=== PATIENT | female | born 1975 | race Caucasian/White ===

== ENCOUNTER → 2020-05-21 09:09 | Outpatient (BNVA) | payer OTHER, SELFPAY | PROVIDERS: Visit Provider Surgery | DX: E66.01 Morbid (severe) obesity due to excess calories (principal); Z68.42 Body mass index [BMI] 45.0-49.9, adult | CPT/HCPCS: Q3014 ==

== ENCOUNTER → 2020-05-23 13:10 | Outpatient (BNVA) | payer OTHER, SELFPAY | PROVIDERS: PCP Nurse Practitioner Family; Visit Provider Surgery | DX: Z76.89 Persons encountering health services in other specified circumstances (principal) ==

== ENCOUNTER → 2020-06-15 14:00 | Outpatient (BNVA) | payer OTHER, BC, SELFPAY | PROVIDERS: PCP Nurse Practitioner Family; Referring Provider Nurse Practitioner Family; Visit Provider Physician Assistant | DX: Z76.89 Persons encountering health services in other specified circumstances (principal) ==

== ENCOUNTER → 2020-06-18 08:03 | Outpatient (BNVA) | payer OTHER, BC, SELFPAY | PROVIDERS: PCP Nurse Practitioner Family; Referring Provider Nurse Practitioner Family; Visit Provider Surgery | DX: Z76.89 Persons encountering health services in other specified circumstances (principal) ==

== ENCOUNTER 2020-06-19 10:17 | Outpatient (REF) | payer OTHER, BC, SELFPAY ==
[2020-06-19 11:50] LABS: MANUAL DIFF FLAG NO
[2020-06-19 11:53] LABS: Basophils Absolute Auto 0.1 X10*3/uL (0.0-0.2); Basophils Percent Auto 0.5 % (0-2); Eosinophils Absolute Auto 0.1 X10*3/uL (0.0-0.4); Eosinophils Percent Auto 0.8 % (0-4); Hemoglobin 11.6 g/dl (12.0-16.0); Imm Gran Abs Auto 0.14 X10*3/uL (0.00-0.03); Imm Gran Pct Auto 1.3 % (0.0-0.4); Lymphocytes Absolute Auto 2.6 X10*3/uL (1.2-4.9); Lymphocytes Percent Auto 24.3 % (20-40); Mean Corpuscular HGB Conc 33.1 g/dl (31.0-35.0); Mean Corpuscular Hemoglobin 29.1 pg (27.0-33.0); Mean Corpuscular Volume 87.7 fL (80-98); Mean Platelet Volume 8.9 fL (9.4-12.3); Monocytes Absolute Auto 0.4 X10*3/uL (0.1-1.2); Monocytes Percent Auto 4.1 % (2-11); Neutrophils Absolute Auto 7.5 X10*3/uL (2.0-8.3); Platelet Count 228 X10*3/uL (160-400); Red Blood Count 3.99 X10*6/uL (4.20-5.50); Red Cell Distribution Width 14.5 % (11.0-16.0); White Blood Count 10.8 X10*3/uL (4.8-10.8)
[2020-06-19 11:58] LABS: INTERNATIONAL NORM RATIO 0.9 (0.9-1.1); Prothrombin Time 11.2 SEC (10.8-13.0)
[2020-06-19 12:01] LABS: Partial Thromboplastin Time 35.4 SEC (24.1-38.0)
[2020-06-19 12:19] LABS: Estimated Average Glucose 85 mg/dL; Hemoglobin A1c % 4.6 %
[2020-06-19 12:33] LABS: Alanine Aminotransferase 27 U/L (0-31); Alkaline Phosphatase 118 U/L (39-117); Anion Gap 14 (12-20); Aspartate Amino Transferase 14 U/L (5-31); Bilirubin Total 0.6 mg/dL (0.0-1.0); Blood Urea Nitrogen 15 mg/dL (9-16); C Reactive Protein 1.94 mg/dL (< or = 0.50); Calcium 8.5 mg/dL (8.4-10.2); Carbon Dioxide 21 mmol/L (22-29); Chloride 109 mmol/L (96-108); Cholesterol 166 mg/dL; Estimated Glomerular Filt Rate > 60; Glucose Random 102 mg/dL (60-115); HDL Cholesterol 29 mg/dL; LDL Cholesterol Calculated 91 mg/dl; Potassium 4.4 mmol/l (3.3-5.1); Sodium 140 mmol/L (135-145); Total Protein 6.8 g/dL (6.5-8.0); Triglycerides 233 mg/dL
[2020-06-19 12:53] LABS: TSH reflex Free T4 1.35 mIU/mL (0.32-4.0)
[2020-06-21 10:52] LABS: Insulin Level Total 39.8 uIU/mL
== END 2020-06-19 10:18 | disposition home or self-care (01) ==
LOC: HO.LAB 10:17
PROVIDERS: PCP Nurse Practitioner Family; Visit Provider Surgery
DX: G43.909 Migraine, unspecified, not intractable, without status migrainosus (principal)
CPT/HCPCS: 36415; 80053; 80061; 83036; 83525; 84443; 85025; 85610; 85730; 86140; 86850

== ENCOUNTER 2020-06-26 06:11 | Inpatient (IN) | payer OTHER, BC, SELFPAY ==
[2020-06-20 13:11] VITALS: BMI 44.6
--- NOTE | 2020-06-25 11:57 | HO.ANESPROP2 ---
Documented by User: Yoselin Cunningham 06/25/20 12:01 HPI - Anesthesia Eval Consult details Narrative: 45yo F for Gastrectomy Sleeve PMFSH Past Medical History Medical History Anxiety Depression History of alcohol abuse Hx of drug abuse Migraines Morbid obesity Panic attacks Restless leg syndrome Stress incontinence Family History Family History Father No problems noted. Mother No problems noted. Brother No problems noted. Sister No problems noted. Surgical History Surgical History S/P discectomy S/P laparoscopic cholecystectomy Social History Social History Are you a primary care program resident to a significant other at home: No Do you presently have visiting nurse or other home services: No Alcohol intake: current Smoking Status: Former smoker Smoking Quit Date: 2003 Use of substances other than those prescribed or required for medical reasons: No Substance Use Type: Marijuana Substance Use Type Other:: quit-2001 -Prior Marijuana & Cocaine abuse Have you been hit, kicked, punched, or otherwise hurt by someone within the past year? If so, by whom?: No Advance Directives: No Advance Directives Information Provided: No Advance Directives on File: No Recently lost weight without trying: No Meds Allergies Allergy/AdvReac Type Severity Reaction Status Date / Time codeine Allergy Unknown nausea and Verified 06/20/20 13:04 vomiting haloperidol [From Haldol] Allergy Dystonic Verified 06/20/20 13:06 Reaction Compazine Allergy Unknown restlessnes Uncoded 06/20/20 13:04 s Home Medications Medication Instructions Recorded Confirmed Type bupropion HCl 200 mg tablet,12 hr 200 mg PO BID 06/18/20 06/20/20 History sustained-release cyclobenzaprine 10 mg tablet 10 mg PO BEDTIME PRN 06/18/20 06/20/20 History duloxetine 60 mg capsule,delayed 60 mg PO BEDTIME 06/18/20 06/20/20 History release gabapentin 400 mg capsule 400 mg PO BEDTIME 06/18/20 06/20/20 History iron,carbonyl 65 mg-vitamin C 125 1 tab PO DAILY 06/18/20 06/20/20 History mg tablet,delayed release lorazepam 1 mg tablet 1 mg PO DAILY PRN 06/18/20 06/20/20 History montelukast 10 mg tablet 10 mg PO DAILY 06/18/20 06/20/20 History propranolol 10 mg tablet 10 mg PO BEDTIME 06/18/20 06/20/20 History sumatriptan succinate 50 mg tablet 50 mg PO Q2-4H PRN 06/18/20 06/20/20 History topiramate 50 mg capsule 50 mg PO BEDTIME 06/18/20 06/20/20 History sprinkle,extended release 24 hr Exam Exam Date and Time: June 25, 2020 1157 Height,Weight and Vital Signs: Height 5 ft 5 in Weight 121.563 kg Pertinent Lab Results Pertinent Lab Results: Laboratory Tests 06/19/20 10:55 Blood Type A Positive Antibody Screen NEGATIVE Laboratory Tests 06/19/20 06/19/20 06/19/20 10:55 10:55 10:55 WBC 10.8 Hgb 11.6 L Hct 35.0 L Plt Count 228 PT 11.2 INR 0.9 APTT 35.4 Sodium 140 Potassium 4.4 Chloride 109 H Carbon Dioxide 21 L BUN 15 Creatinine 0.81 Hemoglobin A1c % Total Insulin Total Bilirubin 0.6 AST 14 ALT 27 Alkaline Phosphatase 118 H C-Reactive Protein 1.94 H Total Protein 6.8 Albumin 4.0 TSH 1.35 06/19/20 06/19/20 10:55 10:55 WBC Hgb Hct Plt Count PT INR APTT Sodium Potassium Chloride Carbon Dioxide BUN Creatinine Hemoglobin A1c % 4.6 Total Insulin 39.8 H Total Bilirubin AST ALT Alkaline Phosphatase C-Reactive Protein Total Protein Albumin TSH Narrative Narrative: EKG 03/2020: NSR@63 ECHO 04/2020: LVEF 60-65%, No obv valve path Assessment and Plan Assessment Anesthesia Assessment: Chart Reviewed Documented by User: Katelyn Feldman 06/26/20 07:11 [facility] Past Medical History Medical History Anxiety Depression History of alcohol abuse Hx of drug abuse Migraines Morbid obesity Panic attacks Restless leg syndrome Stress incontinence Family History Family History Father No problems noted. Mother No problems noted. Brother No problems noted. Sister No problems noted. Surgical History Surgical History S/P discectomy S/P laparoscopic cholecystectomy Social History Social History Are you a primary care program resident to a significant other at home: No Do you presently have visiting nurse or other home services: No Alcohol intake: current Smoking Status: Former smoker Smoking Quit Date: 2003 Use of substances other than those prescribed or required for medical reasons: No Substance Use Type: Marijuana Substance Use Type Other:: quit-2001 -Prior Marijuana & Cocaine abuse Have you been hit, kicked, punched, or otherwise hurt by someone within the past year? If so, by whom?: No Advance Directives: No Advance Directives Information Provided: No Advance Directives on File: No Recently lost weight without trying: No Meds Allergies Allergy/AdvReac Type Severity Reaction Status Date / Time codeine Allergy Unknown nausea and Verified 06/20/20 13:04 vomiting haloperidol [From Haldol] Allergy Dystonic Verified 06/20/20 13:06 Reaction Compazine Allergy Unknown restlessnes Uncoded 06/20/20 13:04 s Home Medications Medication Instructions Recorded Confirmed Type bupropion HCl 200 mg tablet,12 hr 200 mg PO BID 06/18/20 06/20/20 History sustained-release cyclobenzaprine 10 mg tablet 10 mg PO BEDTIME PRN 06/18/20 06/20/20 History duloxetine 60 mg capsule,delayed 60 mg PO BEDTIME 06/18/20 06/20/20 History release gabapentin 400 mg capsule 400 mg PO BEDTIME 06/18/20 06/20/20 History iron,carbonyl 65 mg-vitamin C 125 1 tab PO DAILY 06/18/20 06/20/20 History mg tablet,delayed release lorazepam 1 mg tablet 1 mg PO DAILY PRN 06/18/20 06/20/20 History montelukast 10 mg tablet 10 mg PO DAILY 06/18/20 06/20/20 History propranolol 10 mg tablet 10 mg PO BEDTIME 06/18/20 06/20/20 History sumatriptan succinate 50 mg tablet 50 mg PO Q2-4H PRN 06/18/20 06/20/20 History topiramate 50 mg capsule 50 mg PO BEDTIME 06/18/20 06/20/20 History sprinkle,extended release 24 hr Exam Airway Mallampati Class: II TM Dist: >3cm Neck ROM: Full Heart: RRR Lungs: CTA BL Assessment and Plan Assessment Anesthesia Assessment: Anesthesia Plan Discussed and Chart Reviewed Final Anesthetic Review NPO: Yes ASA Class: II Final Preanesthetic Review: Meds/Allgs Chart Reviewed and Consent Obtained/Reviewed Patient Risk: Intermediate Procedure Risk: Intermediate Anesthetic Plan Anesthetic Plan: GA Disposition: Standard PACU
[2020-06-26] VITALS (9 sets, daily range): BP systolic 129–151; BP diastolic 66–93; PULSE 60–87; RESP 12–18; TEMP 36–36.7; O2SAT 94–100
[2020-06-26 06:09] LABS: UPreg QC Valid YES; Urine Pregnancy NEGATIVE (NEGATIVE)
[2020-06-26] MEDS: ceFAZolin Sodium/Dextrose,Iso 2 GM/50 ML PIGGYBACK IV ×2 (06:30→12:36)
[2020-06-26 06:32] LABS: COVID-19 Test Negative (Negative)
[2020-06-26] MEDS: Lactated Ringers 1,000 ML 999 ML IVCONT (07:00)
[2020-06-26] MEDS: Lactated Ringers 1,000 ML 100 ML IVCONT (07:08)
--- NOTE | 2020-06-26 07:32 | P.HPSUR_ITS ---
Pre-Procedural Eval Section A The patient is an INPATIENT: Yes The History & Physical has been completed within 30 days and I have reviewed it.: Yes Section B Chief Complaint: s/p gastric sleeve Allergies: Allergies Allergy/AdvReac Type Severity Reaction Status Date / Time codeine Allergy Unknown nausea and Verified 06/20/20 13:04 vomiting haloperidol [From Haldol] Allergy Dystonic Verified 06/20/20 13:06 Reaction Compazine Allergy Unknown restlessnes Uncoded 06/20/20 13:04 s Review of Systems Sugical H&P ROS: Negative: Constitution, Cardiovascular, Respiratory, Neurological, Psychiatric, Hem-Onc, Allergic/Immunologic, Gastrointestinal, Genitourinary, Musculoskeletal, Integumentary, Endocrine and Eyes/ Ears/Nose/Throat Exam Surgical H&P Exam: Normal: HEENT, Normal: Heart, Normal: Lungs, Normal: Extremities, Normal: Abdomen, Normal: Skin and Normal: Neurological Plan Diagnosis/Plan: Unchanged Patient has been examined and remains a candidate for the planned procedure
--- NOTE | 2020-06-26 10:02 | P.BOP_ITS ---
Brief Operative Note Date of procedure: 06/26/20 Pre-op diagnosis: Morbid obesity with a BMI of 50.6 kg/m2 and comorbidities Post-op diagnosis: same Procedure: INITIAL PATIENT BMI ON PRESENTATION AT OUR OFFICE: 50.6 kg/m2 LAST BMI BEFORE SURGERY: 44.8 kg/m2 COMORBIDITIES: depression, anxiety. migraines, back pain, restless leg syndrome, stress incontinence, liver steatosis The patient participated in an intensive weekly lifestyle intervention and exercise program during which the patient has lost between the initial office visit and the last preoperative visit 35.2 lbs, or 11.8% of initial actual body weight. The patient met the BMI-criteria for bariatric surgery based on the BMI on initial presentation. The patient should not be penalized for achieving such weight loss because it is not sustainable long-term without surgical intervention and it was achieved in preparation for bariatric surgery under my direction and based on my published research ([email or web address] and [email or web address] www.soard.org/article/[email or web address])28730-X/pdf) that a 10% preoperative weight loss improves long-term weight loss after surgery and reduces perioperative complications. Insurance carriers such as [facility] have endorsed my recommendations and have included in their policies criteria to include a 10% preoperative weight loss requirement. PROCEDURE: Esophago-gastroscopy, laparoscopic lysis of adhesions, laparoscopic sleeve gastrectomy and laparoscopic gastropexy INDICATIONS: This is a 45 year-old female who was electively scheduled for laparoscopic, possibly open sleeve gastrectomy. The risks and complications of the procedure were discussed with the patient in advance, particularly the possibility of ; pulmonary embolism; staple line leak; bleeding; GERD; cardiac, pulmonary, or renal complications; as well as long-term problems such as insufficient weight loss, vitamin deficiency, strictures, or ulcers. The patient understood all the risks, and was in agreement to proceed with surgery. DESCRIPTION OF PROCEDURE: After informed consent was obtained from the patient, the patient was given preoperative antibiotics, and was transferred to the operating room. After successful induction of general anesthesia, pneumatic compressive devices were placed on both lower extremities. An upper endoscopy was performed next. The oropharynx and esophagus appeared to be within normal limits. There was a diaphragmatic hernia present of moderate size consistent with the findings of the preoperative upper GI. The stomach was entered. Then after all fluid and air were suctioned and the stomach was fully decompressed, the scope was withdrawn and secured in the mid esophagus. The patient was then prepped and draped in the usual sterile manner, and abdominal access was established at the right upper quadrant with the Osmani technique. A 12 mm blunt port was inserted, and the abdomen was insufflated with CO2 to a pressure of 15 mmHg. Under direct visualization, additional ports were placed, specifically two 5 mm Versi-step ports to the left upper quadrant, and a 5 mm Versi-Step port to the right upper quadrant. 1% lidocaine plan was used to infiltrate all port sites as well as all fascia defects. Using the EndoClose suture passer device, I placed a #1 Polysorb tie across the falciform ligament in order to retract it up against the abdominal wall and prevent injury of the ligament with our instruments during the procedure. Following that, the patient was placed in a steep reverse Trendelenburg position. An additional 5 mm port was placed to the right flank for the Mediflex retractor that was used to retract the left lobe of the liver. The gastro-esophageal fat pad was opened with the ultrasonic device (Thunderbeat, Olympus) and the anterior esophagus and hiatus were exposed. The angle of His was opened with the ultrasonic device the fundus of the stomach from any diaphragmatic and splenic attachments. I then opened the gastrocolic ligament between the transverse colon and the greater curvature of the stomach with the ultrasonic device to enter the lesser sac and facilitate the ligation of the short gastric vessels. I started at a mid-point along the greater curvature and using the Thunderbeat, all short gastric vessels were divided all the way to the angle of His until the left kevin was completely dissected at its entirety. I then divided the gastro-colic ligament distally to a distance of about 3-4 cm proximal to the esophagus. There were extensive congenital adhesions between the pancreas and posterior gastric wall. Those were lysed completely with the ultrasonic device. Adhesiolysis took approximately 45 min to complete. The stomach was then divided transversely with one Endo DAGOBERTO-45 purple, one Endo DAGOBERTO-45 orange and four DAGOBERTO-60 articulating orange loads using the AEON stapler and loads. Every effort was made that the gastric sleeve had a tubular shape and an even caliber throughout. Once the sleeve resection was completed, the staple line of the gastric sleeve was reinforced with Hemoclips. The resected stomach was retrieved without difficulty from the Osmani port. A gastropexy was then performed in order to prevent postoperative GERD and partial gastric volvulus. Several interrupted 2.0 Surgidac sutures were placed between the sleeve's staple line and the previously divided greater omentum and gastro-colic ligament using the Endo-Stitch device. An upper endoscopy was performed. There was no narrowing at the GE junction. The scope was easily advanced all the way to the pylorus which was clearly visualized. There was no narrowing anywhere and the sleeve's caliber was even throughout. The sleeve's staple line was inspected and there was no evidence of ischemia, bleeding or dehiscence. At that point the gastroscope was withdrawn from the patient?s mouth while we were decompressing the bowel and the stomach from any remaining air. I looked into the lesser sac to see how the sleeve was situating and it was situating well. There was no bleeding from the staple line, spleen, or short gastric vessels. The Mediflex retractor was removed, and the undersurface of the liver was inspected and there was no bleeding. The patient was placed in supine position. I closed the fascial defect of the 12 mm port site with a figure of eight #1 Polysorb suture. Then 100 cc 0.25 % Marcaine plain with 10 mg of Dexamethasone were used to infiltrate the fascial closure as well as all skin incisions. At this point, the abdomen was deflated, all ports were removed under direct vision, and no bleeding was noted from any of the port sites. The skin incisions were irrigated with saline and were closed with 4-0 absorbable monofilament sutures. Steri-Strips and OpSites were used to cover all incisions. The patient was extubated and was transferred in stable condition to the recovery room for further care. I was present and performed all kc parts of the procedure. Reaz was the graphic design assistant. There were no residents to assist with this case. Please send copy of the operative report to Dr. Katelyn Cervantes. Cong Hicks MD, PhD, FACS Surgeon: Samm Hicks MD Anesthesia: GETA, GLMA, local and other (TAP block) Mouse Breeder: Alem Cobb Estimated blood loss (mL): 10 IV fluids (mL): 2,500 Urine output (mL): 0 Pathology: none sent (Stomach) Condition: stable Disposition: PACU
--- NOTE | 2020-06-26 10:11 | P.PNGS_ITS ---
Subjective Subjective Interval history: Patient has mild incisional pain. Was able to ambulate and use the incentive spirometer. Physical Exam Vital Signs: Vital Signs: Last Vital Signs Temp 98.0 F 06/26/20 09:56 Pulse 85 06/26/20 10:07 Resp 14 06/26/20 10:07 BP 143/92 H 06/26/20 10:07 Pulse Ox 100 06/26/20 10:07 Body Mass Index 44.6 Resp: Effort & Inspection: normal respiratory effort Cardio: Jugular venous distension: no JVD Rate: regular rate GI: Inspection: Yes normal to inspection, Yes incision (dry, clean and intact) and Yes obesity Extrem: Right lower extremity: normal to inspection (no calf tenderness) Left lower extremity: normal to inspection (no calf tenderness) Progress Note: A&P Assessment and plan (1) Morbid obesity: Status: Acute Assessment and Plan: 45 year old female was admitted 06/26/2020 with morbid obesity and comorbidities. Problem 1: s/p laparoscopic sleeve gastrectomy, gastropexy and lysis of adhesions Status: Doing well Plan: Check am labs, If OK, will continue phase 1 bariatric diet and discharge later today. (2) Migraines: Status: Acute (3) Restless leg syndrome: Status: Acute (4) Stress incontinence: Status: Acute (5) Congenital intra-abdominal adhesions: Status: Acute (6) Depression: Status: Acute (7) Anxiety: Status: Acute (8) Steatosis, liver: Status: Acute (9) Hepatomegaly: Status: Acute (10) Back pain: Status: Acute (11) S/P laparoscopic sleeve gastrectomy: Status: Acute Fall Risk Details Current Medications: Current Medications Generic Name Dose Route Start Last Admin Trade Name Freq PRN Reason Stop Dose Admin Famotidine 20 mg 06/26/20 10:00 Famotidine/Pf 20 Mg/2 Ml Vial IVPUSH BID JOHN Fentanyl 50 mcg 06/26/20 07:11 Fentanyl Citrate/Pf 100 Mcg/2 Ml Vial IVPUSH Q5M PRN Pain, Severe (Pain Scale 7-10) Gabapentin 400 mg 06/26/20 21:00 Gabapentin 400 Mg Capsule PO BEDTIME JOHN Hydromorphone HCl 0.25 mg 06/26/20 09:52 Hydromorphone Hcl 0.5 Mg/0.5 Ml Syringe IVPUSH Q4H PRN Pain, Moderate (Pain Scale 4-6 Lactated Ringer's 1,000 mls @ 100 mls/hr 06/26/20 06:00 06/26/20 07:08 Lr IVCONT 100 mls/hr .Q10H JOHN Administration Lactated Ringer's 1,000 mls @ 150 mls/hr 06/26/20 10:00 Lr IVCONT .Q6H40M JOHN Cefazolin Sodium/Dextrose 2 gm in 50 mls @ 100 mls/hr 06/26/20 09:52 Ancef IV 06/26/20 10:21 POSTOP ONE Acetaminophen 1,000 mg in 100 mls @ 16.7 mls/hr 06/26/20 10:00 Ofirmev IV .Q6H JOHN Lorazepam 1 mg 06/26/20 09:56 Lorazepam 1 Mg Tablet PO DAILY PRN Anxiety Metoclopramide HCl 10 mg 06/26/20 09:52 Metoclopramide Hcl 10 Mg/2 Ml Vial IVPUSH Q6H PRN Nausea Montelukast Sodium 10 mg 06/27/20 09:00 Montelukast Sodium 10 Mg Tablet PO DAILY [facility] Non-Formulary Medication 50 mg 06/26/20 21:00 Topiramate PO BEDTIME [facility] Ondansetron HCl 4 mg 06/26/20 10:00 Ondansetron Hcl 4 Mg/2 Ml Vial IVPUSH Q8H JOHN Oxycodone HCl 5 mg 06/26/20 07:11 Oxycodone Hcl Immed Release 5 Mg Tablet PO ONCE PRN Pain, Moderate (Pain Scale 4-6 Propranolol HCl 10 mg 06/26/20 21:00 Propranolol Hcl 10 Mg Tablet PO BEDTIME [facility] Protocol Sodium Chloride 3 ml 06/26/20 16:00 0.9 % Sodium Chloride Flush 3 Ml Syringe IVFLUSH QSHIFT JOHN Time Spent With Patient Time: Total time spent is greater than 50% in coordination of care (as documented) at patient's floor/unit and/or counseling patient: Time with patient: less than 15 minutes
[2020-06-26] MEDS: Famotidine/PF 20 MG/2 ML VIAL IVPUSH ×2 (10:17→20:47)
[2020-06-26 10:31] LABS: MANUAL DIFF FLAG NO
[2020-06-26 10:35] LABS: Basophils Percent Auto 0.2 % (0-2); Eosinophils Percent Auto 0.3 % (0-4); Hematocrit 32.7 % (37-47); Imm Gran Abs Auto 0.08 X10*3/uL (0.00-0.03); Imm Gran Pct Auto 0.8 % (0.0-0.4); Lymphocytes Absolute Auto 0.9 X10*3/uL (1.2-4.9); Lymphocytes Percent Auto 8.7 % (20-40); Mean Corpuscular HGB Conc 33.6 g/dl (31.0-35.0); Mean Corpuscular Hemoglobin 29.6 pg (27.0-33.0); Mean Corpuscular Volume 87.9 fL (80-98); Mean Platelet Volume 8.8 fL (9.4-12.3); Monocytes Absolute Auto 0.1 X10*3/uL (0.1-1.2); Monocytes Percent Auto 1.3 % (2-11); Neutrophils Percent Auto 88.7 % (45-73); Platelet Count 168 X10*3/uL (160-400); Red Blood Count 3.72 X10*6/uL (4.20-5.50); Red Cell Distribution Width 14.9 % (11.0-16.0); White Blood Count 10.1 X10*3/uL (4.8-10.8)
[2020-06-26 10:57] LABS: Anion Gap 13 (12-20); Blood Urea Nitrogen 7 mg/dL (9-16); Calcium 8.4 mg/dL (8.4-10.2); Carbon Dioxide 22 mmol/L (22-29); Chloride 106 mmol/L (96-108); Creatinine Clr Calc Pharmacy 92.8; Estimated Glomerular Filt Rate > 60; Glucose Random 130 mg/dL (60-115); Potassium 4.2 mmol/l (3.3-5.1); Sodium 137 mmol/L (135-145)
[2020-06-26 10:58] LABS: Anion Gap 12 (12-20); Blood Urea Nitrogen 7 mg/dL (9-16); Calcium 8.5 mg/dL (8.4-10.2); Carbon Dioxide 24 mmol/L (22-29); Chloride 105 mmol/L (96-108); Creatinine Clr Calc Pharmacy 97.8; Estimated Glomerular Filt Rate > 60; Glucose Random 131 mg/dL (60-115); Potassium 4.2 mmol/l (3.3-5.1); Sodium 137 mmol/L (135-145)
[2020-06-26] MEDS: Lactated Ringers 1,000 ML 150 ML IVCONT ×2 (11:26→18:11)
[2020-06-26] MEDS: HYDROmorphone HCl 0.5 MG/0.5 ML SYRINGE 0.25 MG IVPUSH (15:56)
[2020-06-26] MEDS: ondansetron HCL 4 MG/2 ML VIAL IVPUSH (17:47)
[2020-06-26] MEDS: oxyCODONE HCl Immed Release 5 MG TABLET PO (20:46)
[2020-06-26] MEDS: Topiramate 25 MG TABLET 50 MG PO (20:46)
[2020-06-26] MEDS: Gabapentin 400 MG CAPSULE PO (20:47)
[2020-06-26] MEDS: Propranolol HCL 10 MG TABLET PO (20:47)
[2020-06-26] MEDS: SUMAtriptan succinate 50 MG TABLET PO (22:39)
[2020-06-27] VITALS: BP 117/71; PULSE 59; RESP 16; TEMP 35.7; O2SAT 97
[2020-06-27] MEDS: 0.9 % Sodium Chloride Flush 3 ML SYRINGE IVFLUSH ×2 (00:19→08:59)
[2020-06-27] MEDS: Lactated Ringers 1,000 ML 100 ML IVCONT (01:02)
[2020-06-27] MEDS: ondansetron HCL 4 MG/2 ML VIAL IVPUSH ×2 (02:15→08:59)
[2020-06-27 04:00] VITALS: BP 117/84; PULSE 73; RESP 16; TEMP 35.8; O2SAT 100
[2020-06-27 04:58] LABS: MANUAL DIFF FLAG NO
[2020-06-27 05:07] LABS: Basophils Percent Auto 0.1 % (0-2); Eosinophils Percent Auto 0.1 % (0-4); Hematocrit 29.9 % (37-47); Hemoglobin 10.2 g/dl (12.0-16.0); Imm Gran Abs Auto 0.08 X10*3/uL (0.00-0.03); Imm Gran Pct Auto 0.8 % (0.0-0.4); Lymphocytes Absolute Auto 1.5 X10*3/uL (1.2-4.9); Lymphocytes Percent Auto 14.2 % (20-40); Mean Corpuscular HGB Conc 34.1 g/dl (31.0-35.0); Mean Corpuscular Hemoglobin 29.4 pg (27.0-33.0); Mean Corpuscular Volume 86.2 fL (80-98); Mean Platelet Volume 9.1 fL (9.4-12.3); Monocytes Absolute Auto 0.5 X10*3/uL (0.1-1.2); Monocytes Percent Auto 4.5 % (2-11); Neutrophils Absolute Auto 8.2 X10*3/uL (2.0-8.3); Neutrophils Percent Auto 80.3 % (45-73); Platelet Count 174 X10*3/uL (160-400); Red Blood Count 3.47 X10*6/uL (4.20-5.50); Red Cell Distribution Width 14.8 % (11.0-16.0); White Blood Count 10.2 X10*3/uL (4.8-10.8)
[2020-06-27 05:42] LABS: Anion Gap 11 (12-20); Blood Urea Nitrogen 6 mg/dL (9-16); Calcium 8.3 mg/dL (8.4-10.2); Carbon Dioxide 24 mmol/L (22-29); Chloride 107 mmol/L (96-108); Creatinine Clr Calc Pharmacy 114.8; Estimated Glomerular Filt Rate > 60; Glucose Random 95 mg/dL (60-115); Sodium 138 mmol/L (135-145)
[2020-06-27 07:23] VITALS: BP 139/80; PULSE 73; RESP 19; TEMP 36; O2SAT 100
--- NOTE | 2020-06-27 08:40 | MHC.CM.PN ---
PATIENT IS FULLY INDEPENDENT WITH ALL ADLS. SHE WILL DC HOME TODAY WITH NO NEED FOR SERVICES. SHE IS AWARE OF HERE FOLLOWUP VISIT SCHEDULE PATIENT HAS TRANSPORT HOME.\ RN AWARE OF PLAN.
[2020-06-27] MEDS: Famotidine/PF 20 MG/2 ML VIAL IVPUSH (08:59)
[2020-06-27] MEDS: Montelukast Sodium 10 MG TABLET PO (08:59)
--- NOTE | 2020-06-27 09:47 | HO.POSTANES ---
Post Anesthesia Evaluation Post Anesthesia Evaluation Vital Signs: Vital Signs Temp Pulse Resp BP Pulse Ox 06/27/20 07:23 96.8 F 73 19 139/80 100 06/27/20 04:00 96.4 F L 73 16 117/84 100 06/27/20 00:00 96.2 F L 59 16 117/71 97 Anesthesia: General Endotracheal-GETA Mental Status: Awake Pain Control: Satisfactory Nausea/Vomiting: None Hydration: Adequate Anesthesia-Related Issues: No Anes. Related Issues
--- NOTE | 2020-08-07 15:55 | PM.DS ---
DS: Providers Provider Date of admission: 06/26/20 06:11 Primary care physician: Katelyn Cervantes NP DS: Diagnosis Discharge Diagnosis (1) Morbid obesity: Status: Acute (2) Migraines: Status: Acute (3) Restless leg syndrome: Status: Acute (4) Stress incontinence: Status: Acute (5) Congenital intra-abdominal adhesions: Status: Acute (6) Depression: Status: Acute (7) Anxiety: Status: Acute (8) Steatosis, liver: Status: Acute (9) Hepatomegaly: Status: Acute (10) Back pain: Status: Acute (11) S/P laparoscopic sleeve gastrectomy: Status: Acute DS: Medications Discharge Medications Home Medications: Home Medications Medication Instructions Recorded Confirmed bupropion HCl 200 mg tablet,12 hr 200 mg PO BID 06/18/20 06/20/20 sustained-release duloxetine 60 mg capsule,delayed 60 mg PO BEDTIME 06/18/20 06/20/20 release gabapentin 400 mg capsule 400 mg PO BEDTIME 06/18/20 06/20/20 lorazepam 1 mg tablet 1 mg PO DAILY PRN 06/18/20 06/20/20 montelukast 10 mg tablet 10 mg PO DAILY 06/18/20 06/20/20 propranolol 10 mg tablet 10 mg PO BEDTIME 06/18/20 06/20/20 sumatriptan succinate 50 mg tablet 50 mg PO Q2-4H PRN 06/18/20 06/20/20 topiramate 1 tab PO BEDTIME 06/26/20 06/26/20 Previous Rx's Medication Instructions Recorded ondansetron HCl 4 mg tablet 4 mg PO Q6H PRN #30 tab 06/18/20 pantoprazole 40 mg tablet,delayed 40 mg PO DAILY #30 tab 06/18/20 release sucralfate 100 mg/mL oral 10 ml PO BID #420 ml 06/18/20 suspension DS: Summary Time Spent with Patient Time attestation: Total time spent providing and/or coordinating discharge services: Physical Exam Vital Signs: Vital Signs: Last Vital Signs Temp 96.8 F 06/27/20 07:23 Pulse 73 06/27/20 07:23 Resp 19 06/27/20 07:23 BP 139/80 06/27/20 07:23 Pulse Ox 100 06/27/20 07:23 Body Mass Index 44.6 DS: Data Data Completed and Pending Completed studies during hospitalization [Text1]: Pending at discharge 06/26/20 08:30 Surgical [PTH] Routine Procedures Excision of Stomach, Percutaneous Endoscopic Approach, Vertical (06/26/20) Release Peritoneum, Percutaneous Endoscopic Approach (06/26/20) Labs on day of discharge: 06/19/20 10:55 Type and Screen Routine 06/26/20 05:45 COVID-19 ID NOW (Garcia) Stat 06/26/20 05:46 Ur Preg Test Stat 06/26/20 05:56 Acetaminophen [Ofirmev] 1,000 mg in 100 ml IV PREOP 06/26/20 06:00 Lactated Ringers [Lr] 1,000 ml IVCONT 100 mls/hr 06/26/20 06:15 Acetaminophen [Ofirmev] 1,000 mg in 100 ml IV As directed ceFAZolin Sodium/Dextrose,Iso [Ancef] 2 gm in 50 ml .ROUTE As directed 06/26/20 07:08 dexAMETHasone Sod Phosphate/PF [Decadron] 10 mg .ROUTE .STK-MED ONE 06/26/20 07:09 Bupivacaine MPF 0.25 % [Sensorcaine-MPF 0.25% 10 ML] 10 ml .ROUTE .STK-MED ONE Lidocaine HCl 1 % MPF [Xylocaine 1 % MPF] 5 ml .ROUTE .STK-MED ONE 06/26/20 07:11 fentaNYL citrate/PF [Sublimaze] 50 mcg IVPUSH Q5M PRN oxyCODONE HCl Immed Release [Roxicodone] 5 mg PO ONCE PRN 06/26/20 07:22 Lidocaine HCl 2 % MPF [Xylocaine 2 % MPF] 5 ml .ROUTE .STK-MED ONE Midazolam HCl/PF [Versed] 2 mg IVPUSH .STK-MED ONE Rocuronium [place] [Zemuron] 100 mg IV .STK-MED ONE Succinylcholine Chloride [Quelicin] 100 mg IVPUSH .STK-MED ONE propofoL [Diprivan] 200 mg IVPUSH .STK-MED ONE 06/26/20 07:23 Ketamine HCl/NS 50 mg IVPUSH .STK-MED ONE fentaNYL citrate/PF [Sublimaze] 50 mcg .ROUTE .STK-MED ONE 06/26/20 07:30 Lactated Ringers [Lr] 1,000 ml IVCONT 999 mls/hr 06/26/20 07:32 ceFAZolin Sodium/Dextrose,Iso [Ancef] 2 gm in 50 ml IV PREOP 06/26/20 07:33 Glycopyrrolate [Robinul] 0.2 mg .ROUTE .STK-MED ONE Succinylcholine Chloride [Quelicin] 100 mg IVPUSH .STK-MED ONE propofoL [Diprivan] 200 mg IVPUSH .STK-MED ONE 06/26/20 07:35 ceFAZolin Sodium [Ancef] 1 gm .ROUTE .STK-MED ONE 06/26/20 07:48 dexAMETHasone sod phosphate [Decadron] 4 mg .ROUTE .STK-MED ONE ondansetron HCL [Zofran] 4 mg .ROUTE .STK-MED ONE 06/26/20 08:05 HYDROmorphone HCl [Dilaudid] 2 mg .ROUTE .STK-MED ONE 06/26/20 08:13 Phenylephrine HCL 1,000 mcg IVPUSH .STK-MED ONE 06/26/20 08:18 ondansetron HCL [Zofran] 4 mg .ROUTE .K-MED ONE 06/26/20 08:30 Surgical [PTH] Routine 06/26/20 09:32 Sugammadex Sodium [[place]] 200 mg IVPUSH .STK-MED ONE 06/26/20 09:52 Ambulate Q4H WHILE AWAKE Compression Therapy QSHIFT Head of bed elevation DIRECTED Incentive Spirometry Q1HR WHILE AWAKE Intake and Output Q4HR Code Status Routine HYDROmorphone HCl [Dilaudid] 0.25 mg IVPUSH Q4H PRN Metoclopramide HCl [Reglan] 10 mg IVPUSH Q6H PRN 06/26/20 09:53 Apply Abdominal Binder TOLERATED Vital Signs Q4H 06/26/20 09:56 LORazepam [Ativan] 1 mg PO DAILY PRN 06/26/20 Breakfast NPO Diet Acetaminophen [Ofirmev] 1,000 mg in 100 ml IV 16.7 mls/hr Famotidine/PF [Pepcid/PF] 20 mg IVPUSH BID Lactated Ringers [Lr] 1,000 ml IVCONT 150 mls/hr ondansetron HCL [Zofran] 4 mg IVPUSH Q8H 06/26/20 10:12 Famotidine/PF [Pepcid/PF] 20 mg IVPUSH .STK-MED ONE 06/26/20 10:25 Basic Metabolic Panel DAILY@0500 Basic Metabolic Panel Stat Complete Blood Count Auto Diff DAILY@0500 06/26/20 12:30 ceFAZolin Sodium/Dextrose,Iso [Ancef] 2 gm in 50 ml IV POSTOP@1230 06/26/20 16:00 0.9 % Sodium Chloride Flush [NS Flush] 3 ml IVFLUSH QSHIFT 06/26/20 19:17 SUMAtriptan succinate [Imitrex] 50 mg PO ONCE ONE 06/26/20 19:18 SUMAtriptan succinate [Imitrex] 50 mg PO ONCE ONE 06/26/20 21:00 Gabapentin [Neurontin] 400 mg PO BEDTIME Propranolol HCL [Inderal] 10 mg PO BEDTIME Topiramate [Topamax] 50 mg PO BEDTIME 06/27/20 01:00 SUMAtriptan succinate [Imitrex] 50 mg PO ONCE PRN 06/27/20 04:41 Basic Metabolic Panel DAILY@0500 Complete Blood Count Auto Diff DAILY@0500 06/27/20 09:00 Montelukast Sodium [Singulair] 10 mg PO DAILY Laboratory Last Values WBC 10.2 X10*3/uL (4.8-10.8) 06/27/20 04:41 RBC 3.47 X10*6/uL (4.20-5.50) L 06/27/20 04:41 Hgb 10.2 g/dl (12.0-16.0) L 06/27/20 04:41 Hct 29.9 % (37-47) L 06/27/20 04:41 MCV 86.2 fL (80-98) 06/27/20 04:41 MCH 29.4 pg (27.0-33.0) 06/27/20 04:41 MCHC 34.1 g/dl (31.0-35.0) 06/27/20 04:41 RDW 14.8 % (11.0-16.0) 06/27/20 04:41 Plt Count 174 X10*3/uL (160-400) 06/27/20 04:41 MPV 9.1 fL (9.4-12.3) L 06/27/20 04:41 Immature Gran % (Auto) 0.8 % (0.0-0.4) H 06/27/20 04:41 Neut % (Auto) 80.3 % (45-73) H 06/27/20 04:41 Lymph % (Auto) 14.2 % (20-40) L 06/27/20 04:41 [place] % (Auto) 4.5 % (2-11) 06/27/20 04:41 Eos % (Auto) 0.1 % (0-4) 06/27/20 04:41 Baso % (Auto) 0.1 % (0-2) 06/27/20 04:41 Lymph # (Auto) 1.5 X10*3/uL (1.2-4.9) 06/27/20 04:41 [place] # (Auto) 0.5 X10*3/uL (0.1-1.2) 06/27/20 04:41 Eos # (Auto) 0.0 X10*3/uL (0.0-0.4) 06/27/20 04:41 Baso # (Auto) 0.0 X10*3/uL (0.0-0.2) 06/27/20 04:41 Abs Immat Gran (auto) 0.08 X10*3/uL (0.00-0.03) H 06/27/20 04:41 Absolute Neuts (auto) 8.2 X10*3/uL (2.0-8.3) 06/27/20 04:41 Absolute Nucleated RBC 0.000 X10*3/uL (0.0-0.012) 06/27/20 04:41 Nucleated RBC % (auto) 0.0 /100WBC (0.0-0.2) 06/27/20 04:41 Sodium 138 mmol/L (135-145) 06/27/20 04:41 Potassium 4.0 mmol/l (3.3-5.1) 06/27/20 04:41 Chloride 107 mmol/L (96-108) 06/27/20 04:41 Carbon Dioxide 24 mmol/L (22-29) 06/27/20 04:41 Anion Gap 11 (12-20) L 06/27/20 04:41 BUN 6 mg/dL (9-16) L 06/27/20 04:41 Creatinine 0.80 mg/dL (0.5-1.4) 06/27/20 04:41 Estim Creat Clear Calc 114.8 06/27/20 04:41 Estimated GFR > 60 06/27/20 04:41 Random Glucose 95 mg/dL (60-115) 06/27/20 04:41 Calcium 8.3 mg/dL (8.4-10.2) L 06/27/20 04:41 Urine Test NEGATIVE (NEGATIVE) 06/26/20 05:46 COVID-19 ([place]) Negative (Negative) 06/26/20 05:45 COVID-19 Clin Com See Note 06/26/20 05:45 Blood Type A Positive 06/19/20 10:55 Antibody Screen NEGATIVE 06/19/20 10:55 Discharge Plan Discharge Anticipated Discharge Date/Time: 06/27/20 11:18 Patient Disposition: Home, Self-Care Referrals: Katelyn Cervantes NP [Primary Care Provider] - Discharge Medications: Continued topiramate 50 mg tablet 1 tab PO BEDTIME RF: 0 lorazepam 1 mg tablet 1 mg PO DAILY PRN (Reason: Anxiety) RF: 0 gabapentin 400 mg capsule 400 mg PO BEDTIME RF: 0 sumatriptan succinate 50 mg tablet 50 mg PO Q2-4H PRN (Reason: Migraine Headache) RF: 0 duloxetine 60 mg capsule,delayed release(DR/EC) 60 mg PO BEDTIME RF: 0 propranolol 10 mg tablet 10 mg PO BEDTIME RF: 0 bupropion HCl 200 mg tablet sustained-release 12 hr 200 mg PO BID RF: 0 montelukast 10 mg tablet 10 mg PO DAILY RF: 0 ondansetron HCl [Zofran] 4 mg tablet 4 mg PO Q6H PRN (Reason: nausea and vomiting) Qty: 30 RF: 0 pantoprazole 40 mg tablet,delayed release (DR/EC) 40 mg PO DAILY Qty: 30 RF: 2 sucralfate 100 mg/mL suspension 10 ml PO BID Qty: 420 RF: 2 Discontinued Vitron-C 65 mg iron- 125 mg tablet,delayed release (DR/EC) 1 tab PO DAILY RF: 0 cyclobenzaprine 10 mg tablet 10 mg PO BEDTIME PRN (Reason: Pain) RF: 0 polyethylene glycol 3350 [Miralax] 17 gram powder in packet 17 g PO DAILY Qty: 14 RF: 0 Discharge Orders: Discharge Order (Routine); Ordered 06/27/20 Ordered By: Samm Hicks Diet: other Activity on Discharge: No heavy lifting Discharge Date/Time: 06/27/20 09:39 Activity Restrictions/Additional Instructions: INSTRUCTIONS You are being discharged home on bariatric diet phase 1. Continue this today and start bariatric phase 2 tomorrow morning. Follow all instructions in the bariatric hand book and call with any questions. No lifting, sexual relations, tub baths or vigorous exercise, do not restart until told to do so by Dr Hicks. No alcohol, tobacco or caffeine products. ADMITTING DIAGNOSIS: morbid obesity DISCHARGE DIAGNOSIS: same, s/p laparoscopic sleeve gastrectomy PAST SURGICAL HISTORY: lap misael PROCEDURE: upper endoscopy, laparoscopic sleeve gastrectomy with gastropexy DISCHARGE SUMMARY: History of Present Illness: The patient is a 45 year-old woman with a BMI of 50.59 kg/m2 and associated co-morbidities as described above. The patient had extensive work-up,lost 35.2 lbs preoperatively and was electively scheduled for laparoscopic, possible open sleeve gastrectomy and gastropexy. Risks and complications of the surgery were discussed with the patient in advance, particularly the possibility of , pulmonary embolism, anastomotic leak, bleeding, bowel injury, GERD, cardiac, renal or pulmonary complications. The patient understood all the risks and was in agreement with the surgical plan. Hospital Course: The patient underwent an uneventful laparoscopic sleeve gastrectomy with gastropexy the day of admission. Postoperatively, the patient was transferred to the surgical floor. The patient was on IV Acetaminophen and IV dilaudid for pain control. Patient was started on bariatric phase 1 diet POD #0. On postoperative day one, the patient was feeling well without nausea, vomiting, fevers, or tachycardia. The patient had some mild incisional pain. The abdomen was soft. On the morning of postoperative day one, the patient was continued on 1 ounce of water or ice every half hour. During the first day, the patient did fairly well, having some incisional pain, but able to ambulate adequately and to tolerate liquids well. Since the patient is doing well, we decided that the patient was ready to be discharged. The patient was given instructions to follow-up with me next week and to call my office for any fever over 101, persistent abdominal pain, nausea, vomiting, GERD, change in the color of the JOSE fluid, symptoms of DVT such as calf tenderness, or leg swelling, or pulmonary embolism such as chest pain or shortness of breath. The patient was also instructed to drink 40-60 ounces of liquids per day using the 1-ounce cups. The patient was given prescription for Tylenol for pain, Zofran prn for nausea, and pantoprazole and carafate. The patient was encouraged to ambulate and use the incentive spirometer. The patient was allowed to shower, but no baths, and encouraged to stay active at home. All of these instructions were given to the patientpersonally. All questions were answered and the patient understood all instructions, the instructions were also given to the patient in print. Visit Report Forms: Patient Portal Discharge page Care Plan Goals: weight loss Health Concerns: morbid obesity Plan of Treatment: see discharge instructions
== END 2020-06-27 09:39 | disposition home or self-care (01) | DRG 403 ==
LOC: HO.SSSA 06:12 → HO.S3 10:14
PROVIDERS: Nurse Practitioner; Physician Assistant; Admitting Provider Surgery; PCP Nurse Practitioner Family; Visit Provider Surgery
PROC: 0DB64Z3 Excision of Stomach, Percutaneous Endoscopic Approach, Vertical (ICD-10-PCS; CPT 43845; principal; 2020-06-26 07:30)
DX: E66.01 Morbid (severe) obesity due to excess calories (principal); K76.0 Fatty (change of) liver, not elsewhere classified; R16.0 Hepatomegaly, not elsewhere classified; F32.9 Major depressive disorder, single episode, unspecified; F41.9 Anxiety disorder, unspecified; Z68.41 Body mass index [BMI] 40.0-44.9, adult; G43.909 Migraine, unspecified, not intractable, without status migrainosus; R32 Unspecified urinary incontinence; M54.9 Dorsalgia, unspecified; G25.81 Restless legs syndrome; K66.0 Peritoneal adhesions (postprocedural) (postinfection); Z88.5 Allergy status to narcotic agent; Z79.899 Other long term (current) drug therapy
CPT/HCPCS: 43775; 43235; 44180; 36415; 80048; 81025; 85025; 86850; 86900; 86901; 87635; 88307; 88342; 99024; A4649; J0131; J0330; J0690; J1100; J1170; J2250; J2370; J2405; J3010

== ENCOUNTER → 2020-07-02 07:26 | Outpatient (BNVA) | payer OTHER, BC, SELFPAY | PROVIDERS: PCP Nurse Practitioner Family; Visit Provider Surgery | DX: Z76.89 Persons encountering health services in other specified circumstances (principal) ==

== ENCOUNTER → 2020-08-01 07:52 | Outpatient (BNVA) | payer OTHER, BC, SELFPAY | PROVIDERS: PCP Nurse Practitioner Family; Visit Provider Surgery | DX: Z76.89 Persons encountering health services in other specified circumstances (principal) ==

== ENCOUNTER → 2020-09-03 07:14 | Outpatient (BNVA) | payer OTHER, BC, SELFPAY | PROVIDERS: PCP Nurse Practitioner Family; Visit Provider Surgery ==

== ENCOUNTER → 2020-10-10 08:08 | Outpatient (BNVA) | payer OTHER, BC, SELFPAY | PROVIDERS: PCP Nurse Practitioner Family; Visit Provider Surgery ==

== ENCOUNTER 2020-10-11 10:43 | Outpatient (REF) | payer OTHER, BC, SELFPAY ==
[2020-10-11 11:28] LABS: MANUAL DIFF FLAG NO
[2020-10-11 11:33] LABS: Basophils Percent Auto 0.3 % (0-2); Eosinophils Percent Auto 0.5 % (0-4); Hematocrit 35.1 % (37-47); Hemoglobin 11.9 g/dl (12.0-16.0); Imm Gran Abs Auto 0.02 X10*3/uL (0.00-0.03); Imm Gran Pct Auto 0.3 % (0.0-0.4); Lymphocytes Absolute Auto 1.3 X10*3/uL (1.2-4.9); Lymphocytes Percent Auto 17.5 % (20-40); Mean Corpuscular HGB Conc 33.9 g/dl (31.0-35.0); Mean Corpuscular Hemoglobin 29.8 pg (27.0-33.0); Mean Corpuscular Volume 87.8 fL (80-98); Mean Platelet Volume 9.4 fL (9.4-12.3); Monocytes Absolute Auto 0.4 X10*3/uL (0.1-1.2); Monocytes Percent Auto 5.2 % (2-11); Neutrophils Absolute Auto 5.8 X10*3/uL (2.0-8.3); Neutrophils Percent Auto 76.2 % (45-73); Platelet Count 174 X10*3/uL (160-400); Red Cell Distribution Width 14.6 % (11.0-16.0); White Blood Count 7.6 X10*3/uL (4.8-10.8)
[2020-10-11 12:04] LABS: Estimated Average Glucose 68 mg/dL
[2020-10-11 12:26] LABS: TSH reflex Free T4 1.16 uIU/mL (0.32-4.0)
[2020-10-11 12:30] LABS: Alanine Aminotransferase 25 U/L (0-31); Albumin Level 4.4 g/dL (3.5-5.0); Alkaline Phosphatase 115 U/L (39-117); Anion Gap 12 (12-20); Aspartate Amino Transferase 16 U/L (5-31); Bilirubin Total 0.7 mg/dL (0.0-1.0); Blood Urea Nitrogen 21 mg/dL (9-16); C Reactive Protein 1.08 mg/dL (< or = 0.50); Calcium 9.3 mg/dL (8.4-10.2); Carbon Dioxide 26 mmol/L (22-29); Chloride 109 mmol/L (96-108); Cholesterol 186 mg/dL; Estimated Glomerular Filt Rate > 60; Glucose Random 84 mg/dL (60-115); HDL Cholesterol 34 mg/dL; LDL Cholesterol Calculated 121 mg/dl; Potassium 4.6 mmol/L (3.3-5.1); Sodium 142 mmol/L (135-145); Triglycerides 156 mg/dL
[2020-10-11 13:07] LABS: Ferritin 102 ng/mL (10-250)
[2020-10-11 18:34] LABS: Folate 10.7 ng/mL (> or = 4.0); Vitamin B12 873 pg/mL (200-900)
[2020-10-12 06:06] LABS: Insulin Level Total 6.1 uIU/mL
[2020-10-14 03:06] LABS: Zinc 85 mcg/dL (60-130)
[2020-10-15 13:56] LABS: Calcium (PTHI) 9.3 mg/dL (8.6-10.2); PTHI 47 pg/mL (14-64)
[2020-10-16 11:41] LABS: Vitamin A 70 mcg/dL (38-98)
[2020-10-16 13:41] LABS: Vitamin B1 29 nmol/L (8-30)
== END 2020-10-11 10:44 | disposition home or self-care (01) ==
LOC: HO.LAB 10:43
PROVIDERS: PCP Nurse Practitioner Family; Visit Provider Surgery
DX: E66.9 Obesity, unspecified (principal); K90.9 Intestinal malabsorption, unspecified
CPT/HCPCS: 36415; 80053; 80061; 82306; 82607; 82728; 82746; 83036; 83525; 83970; 84425; 84443; 84590; 84630; 85025; 86140

== ENCOUNTER → 2020-11-07 08:08 | Outpatient (BNVA) | payer OTHER, BC, SELFPAY | PROVIDERS: PCP Nurse Practitioner Family; Visit Provider Surgery ==

== ENCOUNTER → 2020-12-17 08:18 | Outpatient (BNVA) | payer OTHER, BC, SELFPAY | PROVIDERS: PCP Nurse Practitioner Family; Visit Provider Surgery ==

== ENCOUNTER → 2021-03-04 07:49 | Outpatient (BNVA) | payer OTHER, BC, SELFPAY | PROVIDERS: PCP Nurse Practitioner Family; Visit Provider Surgery ==

== ENCOUNTER 2023-07-28 12:55 | Outpatient (AMB) | payer BC, SELFPAY ==
--- NOTE | 2023-07-28 13:18 | A.OFFVIS_ITS ---
Intake VS Expanded 07/28/23 13:38 BP 132/74 Blood Pressure Location Rt brachial Blood Pressure Position Sitting Pulse 85 Pulse Source Pulse Oximeter Temp 97.3 F Temperature Source Tympanic Pulse Oximetry 98 Oxygen Delivery Method Room Air Height 5 ft 5 in Weight 215 lb 12.8 oz BMI 35.9 Body Fat % 39.0 Body Fat Mass 84.0 Fat Free Mass 131.6 Visceral Fat Rating 10.0 Body Water % 43.5 Body Water Mass 93.6 Muscle Mass/Score 125.0 Basal Metabolic Rate/Score 1,806 Intake Visit Reasons: (OV) PO LSG 06/26/20 Allergies codeine Allergy (Unknown, Verified 07/28/23 13:19) nausea and vomiting haloperidol [From Haldol] Allergy (Verified 07/28/23 13:19) Dystonic Reaction Compazine Allergy (Unknown, Uncoded 07/28/23 13:19) restlessness Medication List - Last Reconciled 07/28/23 by LIS Tesfaye bupropion HCl 200 mg PO BID clonazepam 0.5 mg PO BID gabapentin 400 mg PO BEDTIME ondansetron HCl (Zofran) 4 mg PO Q6H PRN quetiapine (Seroquel) 50 mg PO DAILY rimegepant (Nurtec ODT) 75 mg PO Q OTHER DAY HPI HPI Comments History of Present Illness Details This?is a?48?yo female who is s/p LSG 06/26/2020. Presents for 3 year post op visit. Weight at last visit on 06/04/2022 was 174.8 pounds with a BMI of 29, weight today is 215.8 pounds, representing a 41 pound weight gain with a BMI today of 35.9.? Pt reports 9 month leave of absence from work. Wasn't eating much for a while, got down to 157lbs and feels that she was anorexic . Had a relapse after 20 years of sobriety, started smoking marijuana again but sober now since September. After that started regaining weight. Has also had medication changes. Cites not being able to sustain strict meal plans- time constraints, sugar cravings. Currently in therapy. She becomes tearful during the visit expressing her frustration and shares I feel like I'm undoing everything . Present meal plan given at last visit: Protein goal of 70-75g. Breakfast- Chobani yogurt Lunch and dinner- 3-4oz protein, 3-4oz veg (or 1-2oz carb in place of 1-2oz veg) not following this we did not get a chance to discuss exercise at this visit [facility] Medical History (Updated 06/04/22 @ 12:25 by LIS Tesfaye) Back pain Hepatomegaly Steatosis, liver Depression History of alcohol abuse Hx of drug abuse Panic attacks Anxiety Depression Stress incontinence Restless leg syndrome Migraines Morbid obesity Surgical History History of sleeve gastrectomy S/P discectomy S/P laparoscopic cholecystectomy S/P laparoscopic sleeve gastrectomy Family History Father No problems noted. Mother No problems noted. Brother No problems noted. Sister No problems noted. Social History Are you a primary patient care specialist to a significant other at home: No Do you presently have visiting nurse or other home services: No Alcohol intake: current Substance Use Type: Marijuana service: No Current occupational status: employed Assessment & Plan Assessment & Plan (1) Obesity: Code(s): E66.9 - Obesity, unspecified (2) S/P laparoscopic sleeve gastrectomy: Code(s): Z98.84 - Bariatric surgery status Plan New meal plan: 2 Celebrate shakes per day, each with 2 scoops powder in 8oz unsweetened almond milk. 2 ZP bars per day. 1 meal of 4 forks protein, 4 forks salad/veg. Will discuss exercise at next visit. Gave pt info on support groups and requested facebook group access. Texted meal plan to pt and encouraged her to reach out between appts if plan is not working well for her. RTC 6 weeks. Patient is obese and is not considered stable at this time. I spent a total of 30 minutes reviewing/updating records, examining the patient and counseling the patient on weight management as detailed above. Orders: Orders IRON PROFILE Today Z98.84 - Bariatric surgery status Comprehensive Met. Panel Today Z98.84 - Bariatric surgery status Vitamin B12 and Folate Today Z98.84 - Bariatric surgery status Zinc Today Z98.84 - Bariatric surgery status Vitamin B1 Today Z98.84 - Bariatric surgery status TSH reflex Free T4 Today Z98.84 - Bariatric surgery status Ferritin Today Z98.84 - Bariatric surgery status Vitamin D 25-OH Total Today Z98.84 - Bariatric surgery status Insulin Today Z98.84 - Bariatric surgery status Hemoglobin A1c Today Z98.84 - Bariatric surgery status Complete Blood Count Auto Diff Today Z98.84 - Bariatric surgery status Lipid Panel Today Z98.84 - Bariatric surgery status C Reactive Protein Today Z98.84 - Bariatric surgery status Vitamin A Today Z98.84 - Bariatric surgery status Coding Level of Care Code Est Pt Level 4 (38262) Diagnoses Obesity E66.9 S/P laparoscopic sleeve gastrectomy Z98.84
[2023-07-28 13:38] VITALS: BP 132/74; PULSE 85; TEMP 36.3; O2SAT 98; BMI 35.9
== END 2023-07-28 13:58 | disposition home or self-care (01) ==
PROVIDERS: PCP Nurse Practitioner Family; Visit Provider Physician Assistant Surgical
DX: E66.9 Obesity, unspecified (principal); Z98.84 Bariatric surgery status
CPT/HCPCS: 99214

== ENCOUNTER → 2023-07-28 12:55 | Outpatient (BNVA) | payer OTHER, SELFPAY | PROVIDERS: PCP Nurse Practitioner Family; Visit Provider Physician Assistant Surgical ==

== ENCOUNTER 2023-09-04 08:47 | Outpatient (REF) | payer BC, SELFPAY ==
[2023-09-04 09:01] LABS: MANUAL DIFF FLAG NO
[2023-09-04 09:18] LABS: Basophils Percent Auto 0.5 % (0-2); Eosinophils Absolute Auto 0.1 X10*3/uL (0.0-0.4); Eosinophils Percent Auto 1.5 % (0-4); Hematocrit 37.4 % (37.0-47.0); Hemoglobin 12.8 g/dl (12.0-16.0); Imm Gran Abs Auto 0.02 X10*3/uL (0.00-0.03); Imm Gran Pct Auto 0.4 % (0.0-0.4); Lymphocytes Absolute Auto 1.5 X10*3/uL (1.2-4.9); Lymphocytes Percent Auto 26.4 % (20-40); Mean Corpuscular HGB Conc 34.2 g/dl (31.0-35.0); Mean Corpuscular Volume 84.6 fL (80.0-98.0); Mean Platelet Volume 8.9 fL (9.4-12.3); Monocytes Absolute Auto 0.3 X10*3/uL (0.1-1.2); Monocytes Percent Auto 5.5 % (2-11); Neutrophils Absolute Auto 3.6 x10*3/uL (2.0-8.3); Neutrophils Percent Auto 65.7 % (45-73); Platelet Count 164 X10*3/uL (160-400); Red Blood Count 4.42 X10*6/uL (4.20-5.50); Red Cell Distribution Width 13.7 % (11.0-16.0); White Blood Count 5.5 X10*3/uL (4.8-10.8)
[2023-09-04 09:19] LABS: Estimated Average Glucose 74 mg/dL; Hemoglobin A1c % 4.2 % (<6.0)
[2023-09-04 09:48] LABS: Alanine Aminotransferase 12 U/L (0-31); Albumin Level 4.2 g/dL (3.5-5.0); Alkaline Phosphatase 104 U/L (39-117); Anion Gap 11 (12-20); Aspartate Amino Transferase 13 U/L (5-31); Bilirubin Total 0.5 mg/dL (0.0-1.0); Blood Urea Nitrogen 20 mg/dL (9-16); C Reactive Protein 0.72 mg/dL (< or = 0.50); Calcium 9.6 mg/dL (8.4-10.2); Carbon Dioxide 28 mmol/L (22-29); Chloride 108 mmol/L (96-108); Cholesterol 194 mg/dL (<200); Estimated Glomerular Filt Rate > 60; Glucose Random 87 mg/dL (60-115); HDL Cholesterol 38 mg/dL (>40); Iron 65 mcg/dL (30-160); LDL Cholesterol Calculated 129 mg/dL (<100); Percent Iron Saturation 20 % (15-50); Sodium 143 mmol/L (135-145); Total Iron Binding Capacity 325 mcg/dL (228-428); Total Protein 7.7 g/dL (6.5-8.0); Triglycerides 136 mg/dL (<150); Unsaturated Iron Binding 260 ug/dL
[2023-09-04 10:14] LABS: Folate 12.3 ng/mL (> or = 4.0); Vitamin B12 1148 pg/mL (200-900)
[2023-09-04 10:21] LABS: Ferritin 68 ng/mL (10-250); Insulin 6 uU/mL (2-29); TSH reflex Free T4 1.13 uIU/mL (0.32-4.0); Vitamin D 25-OH Total 37.6 ng/mL (>30)
[2023-09-08 01:24] LABS: Zinc 97 mcg/dL (60-130)
[2023-09-09 01:44] LABS: Vitamin A 61 mcg/dL (38-98)
[2023-09-11 06:24] LABS: Vitamin B1 38 nmol/L (8-30)
== END 2023-09-04 08:48 | disposition home or self-care (01) ==
LOC: HO.LAB 08:47
PROVIDERS: PCP Nurse Practitioner Family; Visit Provider Physician Assistant Surgical
DX: Z98.84 Bariatric surgery status (principal)
CPT/HCPCS: 36415; 80053; 80061; 82306; 82607; 82728; 82746; 83036; 83525; 83540; 84425; 84443; 84590; 84630; 85025; 86140

== ENCOUNTER 2023-09-08 13:09 | Outpatient (AMB) | payer BC, SELFPAY ==
--- NOTE | 2023-09-08 12:35 | MHC.OFFVISWM ---
Intake VS Expanded 09/08/23 12:40 Height 5 ft 5 in Weight 208 lb BMI 34.6 Intake Visit Reasons: (telephone) PO LSG 06/26/20 Allergies codeine Allergy (Unknown, Verified 07/28/23 13:19) nausea and vomiting haloperidol [From Haldol] Allergy (Verified 07/28/23 13:19) Dystonic Reaction Compazine Allergy (Unknown, Uncoded 07/28/23 13:19) restlessness Medication List - Last Reconciled 09/08/23 by LIS Tesfaye bupropion HCl 200 mg PO BID clonazepam 0.5 mg PO BID gabapentin 400 mg PO BEDTIME ondansetron HCl (Zofran) 4 mg PO Q6H PRN quetiapine (Seroquel) 50 mg PO DAILY rimegepant (Nurtec ODT) 75 mg PO Q OTHER DAY HPI HPI Comments History of Present Illness Details This?is a?48?yo female who is s/p LSG 06/26/2020. Presents for 3 year 2 month post op visit. Weight at last visit on 07/28/2023 was 215.8 pounds with a BMI of 35.9, weight today is 208 pounds, representing a 7.8 pound weight loss with a BMI today of 34.6.? No complaints of nausea, emesis, abdominal pain or reflux. Was able to get down to 207lbs at home, but got COVID before [place], no appetite. Restarted this month, noticed she does tend to snack on small things during the day which adds up. Has some constipation, added Miralax to shakes. Present meal plan includes: 2 Celebrate shakes per day, each with 2 scoops powder in 8oz unsweetened almond milk 2 ZP bars per day 1 meal of 4 forks protein, 4 forks salad/veg Exercise routine includes: nothing formal, would like to try yoga [facility] Medical History (Updated 06/04/22 @ 12:25 by LIS Tesfaye) Back pain Hepatomegaly Steatosis, liver Depression History of alcohol abuse Hx of drug abuse Panic attacks Anxiety Depression Stress incontinence Restless leg syndrome Migraines Morbid obesity Surgical History (Reviewed 06/04/22 @ 12:15 by Serenity Castro [facility]) History of sleeve gastrectomy S/P discectomy S/P laparoscopic cholecystectomy S/P laparoscopic sleeve gastrectomy Family History (Reviewed 06/04/22 @ 12:15 by Serenity Castro [facility]) Father No problems noted. Mother No problems noted. Brother No problems noted. Sister No problems noted. Social History (Reviewed 06/04/22 @ 12:15 by Serenity Castro [facility]) Are you a primary child care lead teacher to a significant other at home: No Do you presently have visiting nurse or other home services: No Alcohol intake: current Substance Use Type: Marijuana service: No Current occupational status: employed Assessment & Plan Assessment & Plan (1) Obesity: Code(s): E66.9 - Obesity, unspecified (2) S/P laparoscopic sleeve gastrectomy: Code(s): Z98.84 - Bariatric surgery status Plan Pt will continue on same meal plan for now. Discussed incorporating exercise. Labs reviewed. Fiber supplement ordered. RTC 6-8 weeks. Patient is obese and is not considered stable at this time. I spent a total of 30 minutes reviewing/updating records, examining the patient and counseling the patient on weight management as detailed above. Medications: New inulin 2 grams PO DAILY 90 tabs 3RF Telehealth Telehealth Location of provider rendering services: practice address Location of patient: address on file Patient Identification confirmed using: Name, : Yes Telehealth method: voice only Patient verbally consented to treatment: Yes Patient verbally consented to billing insurance company: Yes Patient informed of any privacy concerns related to visit: Yes Minutes spent on Phone/Video with Pt.: 18 Coding Level of Care Code Tele Est Pt Level 4 (85376) Diagnoses Obesity E66.9 S/P laparoscopic sleeve gastrectomy Z98.84
[2023-09-08 12:40] VITALS: BMI 34.6
== END 2023-09-08 13:14 | disposition home or self-care (01) ==
LOC: HO.HBS 13:09
PROVIDERS: PCP Nurse Practitioner Family; Visit Provider Physician Assistant Surgical
DX: E66.9 Obesity, unspecified (principal); Z98.84 Bariatric surgery status
CPT/HCPCS: 99214

== ENCOUNTER → 2023-09-08 13:09 | Outpatient (BNVA) | payer OTHER, SELFPAY | PROVIDERS: PCP Nurse Practitioner Family; Visit Provider Physician Assistant Surgical | DX: E66.9 Obesity, unspecified (principal); Z98.84 Bariatric surgery status ==

== ENCOUNTER 2023-10-29 10:34 | Outpatient (AMB) | payer BC, SELFPAY ==
--- NOTE | 2023-10-29 10:06 | A.OFFVIS_ITS ---
Intake VS Expanded 10/29/23 10:12 Height 5 ft 5 in Weight 215 lb BMI 35.8 Intake Visit Reasons: (TV) PO LSG 06/26/20 Allergies codeine Allergy (Unknown, Verified 07/28/23 13:19) nausea and vomiting haloperidol [From Haldol] Allergy (Verified 07/28/23 13:19) Dystonic Reaction Compazine Allergy (Unknown, Uncoded 07/28/23 13:19) restlessness Medication List - Last Reconciled 10/29/23 by LIS Tesfaye bupropion HCl 200 mg PO BID clonazepam 0.5 mg PO BID gabapentin 400 mg PO BEDTIME inulin 2 grams PO DAILY ondansetron HCl (Zofran) 4 mg PO Q6H PRN quetiapine (Seroquel) 50 mg PO DAILY rimegepant (Nurtec ODT) 75 mg PO Q OTHER DAY HPI HPI Comments History of Present Illness Details This?is a?48?yo female who is s/p LSG 06/26/2020. Presents for 3 year 4 month post op visit. Weight at last visit on 09/08/2023 was 208 pounds with a BMI of 34.6, weight today is 215 pounds, representing a 7 pound weight gain with a BMI today of 35.8.? No complaints of nausea, emesis, abdominal pain or reflux, o r constipation. I've had a migraine for 6 weeks , was hospitalized to try to treat it. Feels she is using food as a coping mechanism. Lots of food noise . Had trouble adhering to plan. Going to a trauma program in early January, EMDR, 5 days a week. Present meal plan includes: 2 Celebrate shakes per day, each with 2 scoops powder in 8oz unsweetened almond milk 2 ZP bars per day 1 meal of 4 forks protein, 4 forks salad /veg Exercise routine includes: nothing formal due to migraine [facility] Medical History (Updated 06/04/22 @ 12:25 by LIS Tesfaye) Back pain Hepatomegaly Steatosis, liver Depression History of alcohol abuse Hx of drug abuse Panic attacks Anxiety Depression Stress incontinence Restless leg syndrome Migraines Morbid obesity Surgical History History of sleeve gastrectomy S/P discectomy S/P laparoscopic cholecystectomy S/P laparoscopic sleeve gastrectomy Family History Father No problems noted. Mother No problems noted. Brother No problems noted. Sister No problems noted. Social History Are you a primary healthcare receptionist to a significant other at home: No Do you presently have visiting nurse or other home services: No Alcohol intake: current Substance Use Type: Marijuana service: No Current occupational status: employed Assessment & Plan Assessment & Plan (1) Obesity: Code(s): E66.9 - Obesity, unspecified (2) S/P laparoscopic sleeve gastrectomy: Code(s): Z98.84 - Bariatric surgery status Plan Pt feels she would be more consistent with a meal plan allowing another meal. Change to 1 shake a day, 2 bars, and 2 small meals of 4 forks each. We did not discuss exercise today. I suggested meeting with to help with reframing her thoughts about food and herself and she was agreeable. Labs reviewed. RTC 6-8 weeks, meal plan texted to pt. Patient is obese and is not considered stable at this time. I spent a total of 30 minutes reviewing/updating records, examining the patient and counseling the patient on weight management as detailed above. Coding Level of Care Code Est Pt Level 4 (37176) Diagnoses Obesity E66.9 S/P laparoscopic sleeve gastrectomy Z98.84
[2023-10-29 10:12] VITALS: BMI 35.8
== END 2023-10-29 10:42 | disposition home or self-care (01) ==
LOC: HO.HBS 10:34
PROVIDERS: PCP Nurse Practitioner Family; Visit Provider Physician Assistant Surgical
DX: E66.9 Obesity, unspecified (principal); Z68.35 Body mass index [BMI] 35.0-35.9, adult; Z90.3 Acquired absence of stomach [part of]; Z98.84 Bariatric surgery status
CPT/HCPCS: 99214

== ENCOUNTER → 2023-10-29 10:34 | Outpatient (BNVA) | payer BC, SELFPAY | PROVIDERS: PCP Nurse Practitioner Family; Visit Provider Physician Assistant Surgical ==

== ENCOUNTER 2023-11-24 11:54 | Outpatient (AMB) | payer BC, SELFPAY ==
--- NOTE | 2023-11-24 11:27 | MHC.WMTHER ---
Intake Intake Visit Reasons: (TV) PO LSG 06/26/20 Allergies codeine Allergy (Unknown, Verified 07/28/23 13:19) nausea and vomiting haloperidol [From Haldol] Allergy (Verified 07/28/23 13:19) Dystonic Reaction Compazine Allergy (Unknown, Uncoded 07/28/23 13:19) restlessness [facility] Medical History (Updated 12/07/23 @ 14:17 by Nayeli Brunson) Back pain Hepatomegaly Steatosis, liver Depression History of alcohol abuse Hx of drug abuse Panic attacks Anxiety Depression Stress incontinence Restless leg syndrome Migraines Morbid obesity Surgical History History of sleeve gastrectomy S/P laparoscopic sleeve gastrectomy S/P discectomy S/P laparoscopic cholecystectomy Family History Father No problems noted. Mother No problems noted. Brother No problems noted. Sister No problems noted. Social History Are you a primary respite care provider to a significant other at home: No Do you presently have visiting nurse or other home services: No Alcohol intake: current Substance Use Type: Marijuana service: No Current occupational status: employed Behavioral [employer] Assessment Weight Management Therapy Therapy Notes Details Anorexic this time last year, not by choice, could not eat anything. Sober from drugs and alcohol for 20 years and last year relapsed on marijuana. Stopped since then, also was eating preferred foods which caused weight gain. Has been using food to cope and self medicate, shame, saying bad things to herself and about herself. Currently in weekly therapy, did trauma work between Sep and November, then scheduled for 5 day trauma intensive this January. Struggling with sleep, parenting, turns to food. Has weight loss surgery during pandemic 4 years ago. Presenting Concerns Referral Source provider Reason for referral emotional eating Precipitating Event weight gain post weight loss surgery Living Situation Current Living Situation Own At risk of losing current housing? No Satisfied with current living situation? Yes Comments Lives with her and two young children (one adopted and one fostered), no supports Food/Weight/Diet Expectations of change weight loss, improved mood History/Relationship with food skipping meals all day, eats candy, and then will often not plate her food, just eat bites while cooking or plating the kids meals. Often eating [employer] products and ice cream. History/Relationship with weight regained some weight since surgery about 50lbs. History/Relationship with dieting weight loss surgery in 2019. down to 175lbs, then in Jun, trauma, loss etc, stopped eating went down to 155lbs. Then started to eat again however poorly and has been gaining weight. Binge Eating Do you frequently eat large amounts of food in short periods of time, not feeling physically hungry? Yes Do you feel out of control when you eat a large amount of food in a short period of time? Yes Do you eat large amounts of food rapidly and typically alone? Yes Night Eating Do you wake up at least once during the night to eat? No If you wake up in the night, do you find that it is necessary to eat something in order to fall back asleep? No Do you have little or no appetite in the morning and feel very hungry in the evening, often overeating between dinner and when you go to bed? No Social History Social support no supports Mental Health and Addiction Treatment Current/Past substance abuse? Yes Current/Past addictive behavior concerns? Yes Pain Screening Current pain? Yes Pain in the last few months? Yes Assessment & Plan Assessment & Plan (1) Depression: Code(s): F32.9 - Major depressive disorder, single episode, unspecified (2) S/P laparoscopic sleeve gastrectomy: Code(s): Z98.84 - Bariatric surgery status Plan not exercising, not prepping food, skipping meals, over whelmed Coding Level of Care Code Tele Psy Diag Gabriel ([id number]) Diagnoses Depression F32.9 S/P laparoscopic sleeve gastrectomy Z98.84 Time Spent (min) 45
== END 2023-11-24 12:34 | disposition home or self-care (01) ==
LOC: HO.HBST 11:54
PROVIDERS: PCP Nurse Practitioner Family; Visit Provider Counselor Mental Health
DX: F32.9 Major depressive disorder, single episode, unspecified (principal); Z98.84 Bariatric surgery status
CPT/HCPCS: 90791

== ENCOUNTER → 2023-11-24 11:54 | Outpatient (BNVA) | payer BC, SELFPAY | PROVIDERS: PCP Nurse Practitioner Family; Visit Provider Counselor Mental Health ==